=== PATIENT | female | born 1960 | race Asian ===

== ENCOUNTER → 2017-08-22 | Outpatient (CLI) | payer OTHER ==
--- NOTE | 2017-08-22 13:03 | Diagnostic Imaging Report ---
INDICATION: Pain between the shoulder blades. TIME OF EXAM: 12:56 PM Comparison is made with prior study from 02/09/2014. FINDINGS: The heart size is normal. The lungs are clear. No infiltrate is detected. No effusion or pneumothorax is seen. IMPRESSION: No acute cardiopulmonary process is detected. Dictated by: Dictated on workstation # [id number]
== END ==
LOC: RAD 12:27
PROVIDERS: ATTEND Internal Medicine Hematology & Oncology
DX: M54.6 Pain in thoracic spine (principal)
CPT/HCPCS: 71046